=== PATIENT | female | born 1930 | race Hispanic/Latino ===

== ENCOUNTER 2017-11-22 07:04 | Day surgery (SDC) | payer MEDICARE ==
[2017-11-22] MEDS ORDERED: NACL 0.9% 1000 ML 1,000 ML IV SCH (09:00)
--- NOTE | 2017-11-22 09:03 | Anesthesia Consultation ---
Anesthesia Consult and Med Hx Date of service: 11/22/17 - Airway Anesthetic Teeth Evaluation: Edentulous ROM Head & Neck: Adequate Mental/Hyoid Distance: Adequate Mallampati Class: Class II Intubation Access Assessment: Probably Good - Pre-Operative Health Status ASA Pre-Surgery Classification: ASA3 Proposed Anesthetic Plan: MAC - Pulmonary Hx Smoking: Yes (former smoker) COPD: Yes (emphysema) - Cardiovascular System Hx Hypertension: Yes Hx Coronary Artery Disease: No (high cholesterol) - Gastrointestinal Hx Gastroesophageal Reflux Disease: Yes (dysphagea) - Additional Comments Anesthesia Medical History Comments: hard of hearing
--- NOTE | 2017-11-22 09:03 | Anesthesia Day of Surgery ---
Anesthesia Day of Surgery - Day of Surgery Patient Examined: Yes Patient H&P Reviewed: Yes Patient is NPO: Yes
[2017-11-22] MEDS ORDERED: DIPRIVAN 10 MG/ML IV ONE (09:34)
--- NOTE | 2017-11-22 09:39 | Short Stay Summary ---
Short Stay Documentation Date of service: 11/22/17 Narrative H&P: The patient presents for EGD and dilation for progressive dysphagia to solids and liquids associated with weight loss. - History Past Medical History: COPD (On home oxygen. She has had pulmonary clearance.), hypertension Past Surgical History: hysterectomy Social history: no significant social history, lives with family, no smoking - Allergies and Medications Current Medications: Allergies aspirin Allergy (Unverified 11/22/17 07:06) Unknown iodine Allergy (Unverified 11/22/17 07:06) Unknown Active Medications Sodium Chloride (Nacl 0.9% 1000 Ml) 1,000 mls @ 50 mls/hr IV DIRECT RENAN - Physical exam General appearance: no acute distress, well-nourished Integumentary: no rash, no growths, no abnormal pigmentation HEENT: Atraumatic, PERRLA, EOMI, Mucous membr. moist/pink Lungs: Clear to auscultation Breasts: deferred Heart: Regular rate, Normal S1, Normal S2, No murmurs, no Gallops Gastrointestinal: normal, normoactive bowel sounds, tenderness, distended, no masses, no organomegaly Female Genitourinary: deferred Rectal Exam: deferred Extremities: no ischemia, pulses intact, pulses symmetrical, No edema Neurological: Normal gait, Normal speech, Strength at 5/5 X4 ext, Normal tone, Sensation intact, Cranial nerves 3-12 NL - Brief post op/procedure progress note Date of procedure: 11/22/17 Findings: see dictated report. Estimated blood loss: none Pathology: none Condition: stable - Disposition Condition at discharge: Good Disposition: DC-01 TO HOME OR SELFCARE - Discharge Diagnoses (1) Dysphagia Status: Acute Short Stay Discharge Plan Activity: other (no driving for 24 hours) Weight Bearing Status: Weight Bear as Tolerated Diet: regular Follow up with: MIKI SIM MD [Primary Care Provider] - 7 Days
--- NOTE | 2017-11-22 09:59 | Operative Report ---
Operative Report Operative Report: Date of procedure: 11/22/2017 Procedure: Esophagogastroduodenoscopy with empiric balloon dilation of the esophagus from 15-18 mm distally. Preprocedure diagnosis: Dysphagia to solid and liquid foods with a history of recent weight loss. Post procedure diagnosis: Presbyesophagus, hiatus hernia. No definite stricture Endoscopist: Dr. Syed Anesthesia: Monitored anesthesia care per anesthesia department Medications: Propofol per anesthesia Estimated blood loss: 0 After careful discussion of the nature and purpose of the procedure as well as details the technique risks benefits and alternatives consent was obtained. The patient was placed in the left lateral decubitus position and medicated per anesthesia. The tip of the [employer] EQ 570 video scope was passed per orum under direct vision into the esophagus and advanced into the stomach and descending duodenum. The descending duodenum the duodenal bulb and pylorus were symmetrical and normal. The scope was withdrawn into the stomach and the stomach then gently insufflated with air. The antrum was normal. The stomach was further insufflated and the scope was then retroflexed and partially withdrawn. The cardia, fundus, and body of the stomach were within normal limits and easily distensible.The scope was then withdrawn in the forward position. The esophagogastric junction was at 38 cm. There was a small hiatus hernia present.. The esophageal body was tortuous consistent with presbyesophagus. No definite stricture was present. Empiric dilation with a [id number] balloon was performed in light of symptoms. She was performed across the esophagogastric junction from 15-18 mm over 2 minutes.. The procedure was was well tolerated and the patient was observed in recovery. Impressions: Tortuous esophagus consistent with presbyesophagus. No definite stricture. Hiatus hernia. Stomach otherwise. Normal duodenum. Status post empiric dilation. Plan: Redilate when necessary. Continue acid suppression therapy. Electronically signed: Nigel Syed MD
[2017-11-22] MEDS ORDERED: XYLOCAINE MPF 2% ONE (10:00)
[2017-11-22 10:18] VITALS: BP 102/60
--- NOTE | 2017-11-22 14:36 | Post Anesthesia Evaluation ---
- Post Anesthesia Evaluation Patient Participated: Yes Airway Patent: Yes Stable Respiratory Function: Yes Nausea/Vomiting: No Temp > 96.8F: Yes Pain Manageable: Yes Adequeate Hydration: Yes Anesthesia Complications: No
== END 2017-11-22 07:05 | disposition home or self-care (01) ==
LOC: GIO 07:04
PROVIDERS: ATTEND Internal Medicine Gastroenterology
DX: K22.8 Other specified diseases of esophagus (principal); K44.9 Diaphragmatic hernia without obstruction or gangrene; J44.9 Chronic obstructive pulmonary disease, unspecified; R63.4 Abnormal weight loss; I10 Essential (primary) hypertension; Z90.710 Acquired absence of both cervix and uterus; Z88.6 Allergy status to analgesic agent; Z91.048 Other nonmedicinal substance allergy status; Z99.81 Dependence on supplemental oxygen; Z68.23 Body mass index [BMI] 23.0-23.9, adult
CPT/HCPCS: 43249; J2704; C1726